=== PATIENT | male | born 1965 | race Caucasian/White ===

== ENCOUNTER 2023-11-21 07:06 | Outpatient (CLI) | payer OTHER ==
[~2023-11-21 07:06] MED LIST: PEPCID40 MG PO
== END 2023-11-21 07:08 | disposition home or self-care (01) ==
LOC: NUCLEAR 07:06
PROVIDERS: ATTEND Internal Medicine Sports Medicine
DX: I25.10 Atherosclerotic heart disease of native coronary artery without angina pectoris (principal)